=== PATIENT | female | born 1940 | race American Indian/Alaskan Native ===

== ENCOUNTER 2017-11-19 14:18 | Outpatient (CLI) | payer MEDICARE ==
--- NOTE | 2017-11-19 15:34 | Mammography Report ---
BILATERAL DIGITAL DIAGNOSTIC MAMMOGRAM with CAD: 11/19/17 14:18:00 CLINICAL: Followup after benign cyst aspirations of the right breast at 2 sites 07/23/17. COMPARISON:12/03/14 [facility] mammogram. A 2017 mammogram from [place] is not available today but is apparently at [facility]. FINDINGS: The right breast is heterogeneously dense, which may obscure small masses in the left breast is less dense with a few retroareolar and upper outer residual fibroglandular densities.A spiculated 1.3 cm mass in the upper outer right breast is larger compared to the 2015 comparison. It contains a biopsy clip. Bilateral scattered calcifications have benign morphology and are not significantly changed. A partially circumscribed right retroareolar asymmetry on the CC view is smaller compared to the comparison exam. In addition, a circumscribed right outer oval 2 cm mass is no longer identified and additional bilateral asymmetries have resolved. IMPRESSION: A larger spiculated 1.3 cm right upper outer breast mass with the biopsy clip. Recommend comparison with a more recent mammogram and a right global breast ultrasound. BI-RADS CATEGORY: 0--Needs Additional Imaging ACR BI-RADS MAMMOGRAPHIC CODES: 0 = Needs additional imaging evaluation; 1 = Negative; 2 = Benign; 3 = Probably benign; 4 = Suspicious; 5 = Malignant; 6 = Known biopsy-proven malignancy COMMENT: 1. Dense breast tissue, i.e., adenosis, fibrocystic changes, etc., may obscure an underlying neoplasm. 2. Approximately 10% of cancers are not detected with mammography. 3. A negative mammography report should not delay biopsy if a clinically suspicious mass is present. COMMENT: Patient follow-up letters are generated by our [employer] application.
== END 2017-11-19 14:19 | disposition home or self-care (01) ==
LOC: SPVWC 14:18
PROVIDERS: ATTEND Surgery
DX: N63.11 Unspecified lump in the right breast, upper outer quadrant (principal)
CPT/HCPCS: 77066; 77067

== ENCOUNTER 2019-04-28 10:50 | Outpatient (CLI) | payer MEDICARE ==
--- NOTE | 2019-04-28 12:26 | Mammography Report ---
DIGITAL SCREENING MAMMOGRAM WITH CAD, 04/28/2019 INDICATION: Routine screening mammography. History of a benign right breast biopsy TECHNIQUE: Digital bilateral 2D mammography was obtained in the craniocaudal and mediolateral obliq ue projections. This examination was interpreted with the benefit of Computer-Aided Detection analysi s. COMPARISON: 11/19/2017 and 04/18/2017 FINDINGS: Breast Density: The breasts are heterogeneously dense, which may obscure small masses. There is no evidence of dominant mass, suspicious calcifications or suspicious architectural distorti on in either breast. Stable right upper outer postsurgical scar with a biopsy clip. Partially circums cribed right retroareolar densities are not significantly changed compared to previous exams and are presumed to be cysts. The largest has shown a decrease in size on previous exams. Stable nonspecific moderate skin thickening of the right breast. IMPRESSION: No mammographic evidence of malignancy. Follow up recommendation: Routine yearly BI-RADS Category 2: Benign. A "normal" or negative report should not discourage follow up or biopsy of a clinically significant f inding. A written summary of these findings will be mailed to the patient. The patient will be entered into a mammography reporting system which will generate a reminder letter for the patient's next appointmen t at the appropriate interval. The [employer] recommends yearly mammograms starting at age 40 and continuing as l yen as a woman is in good health. Breast MRI is recommended for women with an approximate 20-25% or greater lifetime risk of breast cancer, including women with a strong family history of breast or ova shilpa cancer or who have been treated for Hodgkin's disease. Signer Name: Valentino Bowman MD Signed: 04/28/2019 12:21 PM Workstation Name: [id number]
--- NOTE | 2019-04-29 10:25 | Mammography Report ---
BONE DEXA CLINICAL: Postmenopausal. COMPARISON: 12/03/2014 TECHNIQUE: 2 site bone DEXA performed on an Hologic scanner. FINDINGS: The average BMD of the lumbar spine L1-L4 is 1.205g/cm squared with a T score of +0.5 and a Z score o f +3.5. This compares to 1.062g/cm squared on the last exam and represents a +13.4 % change from the [previous baseline]. The average BMD of the left hip is 1.090 g/cm squared with a T score of +0.4and a Z score of +0.9. Th is compares to 0.997 g/cm squared on the last exam and represents a +9.3 % change from the [previous baseline]. IMPRESSION: 1. WHO classification: Normal with average fracture risk based on both spine and left hip measurement s. 2. A dramatic improvement in both spine and left hip BMD compared to the previous baseline. RECOMMENDATION: Clinical correlation and routine screening. Definitions: BMD equal bone mineral density T score = BMD related to peak bone mass of young adult ([place] expressed an standard deviation) Z score = age-matched BMD expressed in SD World health organization (WHO) diagnostic criteria Normal T score greater than equal to 1 standard deviation Osteopenia T score between -1 and -2.4 standard deviation Osteoporosis T score -2.5 standard deviation or below. Note: BMD is not the only risk factor for fracture; also consider factors such as the patient's age, risk of falling, previous osteoporotic fracture, family history of osteoporotic fractures, current sm oker and low body weight. Z scores are not calculated if greater than 80 years of age. Signer Name: Valentino Bowman MD Signed: 04/29/2019 10:20 AM Workstation Name: [id number]
== END 2019-04-28 10:51 | disposition home or self-care (01) ==
LOC: SPVWC 10:50
DX: Z12.31 Encounter for screening mammogram for malignant neoplasm of breast (principal); M85.89 Other specified disorders of bone density and structure, multiple sites; Z78.0 Asymptomatic menopausal state
CPT/HCPCS: 77067; 77080

== ENCOUNTER 2020-04-29 09:41 | Outpatient (CLI) | payer MEDICARE ==
--- NOTE | 2020-04-29 12:48 | Mammography Report ---
DIGITAL SCREENING MAMMOGRAM WITH CAD, 04/29/2020 INDICATION: Routine screening mammography. SCREENING MAMMO TECHNIQUE: Digital bilateral 2D mammography was obtained in the craniocaudal and mediolateral obliq ue projections. This examination was interpreted with the benefit of Computer-Aided Detection analysi s. COMPARISON: 04/28/2019 FINDINGS: Breast Density: There are scattered areas of fibroglandular density. There is no evidence of dominant mass, suspicious calcifications or architectural distortion in eithe r breast. Bilateral nodular densities again noted and largely unchanged. There are also diffuse bilat eral scattered calcifications which appear similar to the previous exam. Old postoperative changes se en in the right breast. There is a nodular density in the right breast which has enlarged since the p revious exam, likely representing an enlarged cyst given cyst findings on breast ultrasound from 05/01. IMPRESSION: Follow up recommendation: Routine yearly BI-RADS Category 2: Benign. A "normal" or negative report should not discourage follow up or biopsy of a clinically significant f inding. A written summary of these findings will be mailed to the patient. The patient will be entered into a mammography reporting system which will generate a reminder letter for the patient's next appointmen t at the appropriate interval. The [employer] recommends yearly mammograms starting at age 40 and continuing as l yen as a woman is in good health. Breast MRI is recommended for women with an approximate 20-25% or greater lifetime risk of breast cancer, including women with a strong family history of breast or ova shilpa cancer or who have been treated for Hodgkin's disease. Signer Name: Ricky Rocha MD Signed: 04/29/2020 12:43 PM Workstation Name: [id number]
== END 2020-04-29 09:42 | disposition home or self-care (01) ==
LOC: SPVWC 09:41
PROVIDERS: ATTEND Internal Medicine
DX: Z12.31 Encounter for screening mammogram for malignant neoplasm of breast (principal); N64.89 Other specified disorders of breast
CPT/HCPCS: 77067

== ENCOUNTER 2021-05-01 10:26 | Outpatient (CLI) | payer MEDICARE ==
--- NOTE | 2021-05-02 17:00 | Mammography Report ---
DIGITAL SCREENING MAMMOGRAM WITH CAD, 05/01/2021 CLINICAL INFORMATION / INDICATION: Routine screening mammography. TECHNIQUE: Digital bilateral 2D mammography was obtained in the craniocaudal and mediolateral obliqu e projections. This examination was interpreted with the benefit of Computer-Aided Detection analysis . COMPARISON: 04/29/2020, 04/28/2019, 05/13/2018 FINDINGS: Breast Density: There are scattered areas of fibroglandular density. No dominant mass, suspicious calcifications, or architectural distortion in the left breast. Stable postsurgical findings are again noted in the upper outer right breast. There is a 2.7 cm enlar ging circumscribed nodular density in the right retroareolar region. IMPRESSION: Right breast nodular density in the retroareolar region which will require additional bonifacio luation with right breast ultrasound. Follow up recommendation: Ultrasound BI-RADS Category 0: Incomplete. Needs additional imaging evaluation and/or prior mammograms for grzegorz rison. A "normal" or negative report should not discourage follow up or biopsy of a clinically significant f inding. A written summary of these findings will be mailed to the patient. The patient will be entered into a mammography reporting system which will generate a reminder letter for the patient's next appointmen t at the appropriate interval. The [employer] recommends yearly mammograms starting at age 40 and continuing as l yen as a woman is in good health. Breast MRI is recommended for women with an approximate 20-25% or greater lifetime risk of breast cancer, including women with a strong family history of breast or ova shilpa cancer or who have been treated for Hodgkin's disease. Signer Name: Brittani Carpio MD Signed: 05/02/2021 4:56 PM Workstation Name: [email or web address]
== END 2021-05-01 10:27 | disposition home or self-care (01) ==
LOC: SPVWC 10:26
PROVIDERS: ATTEND Internal Medicine
DX: Z12.31 Encounter for screening mammogram for malignant neoplasm of breast (principal)
CPT/HCPCS: 77067

== ENCOUNTER 2021-07-12 10:47 | Outpatient (CLI) | payer MEDICARE ==
--- NOTE | 2021-07-13 18:06 | Ultrasound Report ---
EXAMINATION: Right Limited Breast Ultrasound, 07/12/2021 INDICATION: Abnormal screening mammogram. Screening recall of the right breast. COMPARISON: Screening mammogram, 05/01/2021 and 04/29/2020. FINDINGS: Targeted ultrasound evaluation was performed of the area of interest. Sonographic evaluati on of the right breast demonstrates a 2.3 cm oval cyst at the 12:00 retroareolar position. This corre sponds to the density seen on the recent screening mammogram. There is no suspicious solid mass or sh adowing. IMPRESSION: 1. Right breast cyst as described representing a benign finding. Follow up recommendation: Routine yearly BI-RADS Category 2: BENIGN. A normal or "negative" report should not preclude biopsy or follow-up of a clinically suspicious find ing. Signer Name: Brittani Carpio MD Signed: 07/13/2021 6:02 PM Workstation Name: [id number]
== END 2021-07-12 10:48 | disposition home or self-care (01) ==
LOC: SPVWC 10:47
PROVIDERS: ATTEND Surgery
DX: N60.01 Solitary cyst of right breast (principal); R92.8 Other abnormal and inconclusive findings on diagnostic imaging of breast; N60.19 Diffuse cystic mastopathy of unspecified breast